=== PATIENT | female | born 1960 ===

== ENCOUNTER 2017-03-21 08:42 | Outpatient (CLI) | payer OTHER ==
[~2017-03-21 08:42] MED LIST: CYMBALTA60 MG; TAMOXIFEN CITRA20 MG PO
== END 2017-03-21 08:57 | disposition home or self-care (01) ==
LOC: SONOGRAMA 08:42 → MAMO-SONO 08:45 → SONOGRAMA 08:57
DX: N84.0 Polyp of corpus uteri (principal)

== ENCOUNTER 2020-03-26 07:31 | Day surgery (SDC) | payer OTHER ==
[~2020-03-26 07:31] MED LIST changes: +AMBIEN10 MG PO; +ARIMIDEX PO; +SYNTHROID88 MCG PO
== END 2020-03-26 17:20 | disposition home or self-care (01) ==
LOC: CIR.AMB 07:31
PROVIDERS: ATTEND Specialist
DX: N84.0 Polyp of corpus uteri (principal)